=== PATIENT | male | born 1980 | race Caucasian/White ===

== ENCOUNTER 2017-12-27 18:51 | Inpatient (IN) | payer OTHER ==
[2017-12-27 21:16] VITALS: BMI 24.0
--- NOTE | 2017-12-27 22:06 | HP ---
CIWA Score - CIWA Score Nausea/Vomitin-Mild Nausea/No Vomiting Muscle Tremors: 4-Moderate,w/Arms Extend Anxiety: 4-Mod. Anxious/Guarded Agitation: 4-Moderately Restless Paroxysmal Sweats: No Perspiration Orientation: 0-Oriented Tacttile Disturbances: 0-None Auditory Disturbances: 0-None Visual Disturbances: 0-None Headache: 0-None Present CIWA-Ar Total Score: 13 Admission ROS BHS - HPI Chief Complaint: Alcohol withdrawal symptoms Allergies/Adverse Reactions: Allergies Allergy/AdvReac Type Severity Reaction Status Date / Time No Known Allergies Allergy Verified 12/27/17 22:02 History of Present Illness: 37 years old male with a 6 years old history of alcohol dependence is seeking admission to detox. Patient has never been to a detox and this his first admission to [facility]. He has medical history of depression and denies suicidal ideation at this time. Exam Limitations: No Limitations - Ebola screening Have you traveled outside of the country in the last 21 days: No Have you had contact with anyone from an Ebola affected area: No Have you been sick,other than usual withdrawal symptoms: No Do you have a fever: No - Review of Systems Constitutional: Chills, Loss of Appetite, Night Sweats EENT: reports: No Symptoms Reported Respiratory: reports: No Symptoms reported Cardiac: reports: No Symptoms Reported GI: reports: Nausea, Poor Appetite, Poor Fluid Intake, Abdominal cramping : reports: No Symptoms Reported Musculoskeletal: reports: Back Pain Integumentary: reports: Dryness Neuro: reports: Headache, Tremors Endocrine: reports: No Symptoms Reported Hematology: reports: No Symptoms Reported Psychiatric: reports: Orientated x3, Agitated, Anxious, Depressed Other Systems: Reviewed and Negative Patient History - Patient Medical History Hx Anemia: No Hx Asthma: No Hx Chronic Obstructive Pulmonary Disease (COPD): No Hx Cancer: No Hx Cardiac Disorders: No Hx Congestive Heart Failure: No Hx Hypertension: No Hx Hypercholesterolemia: No HX Cerebrovascular Accident: No Hx Seizures: No Hx Diabetes: No Hx Gastrointestinal Disorders: No Hx Liver Disease: No Hx Genitourinary Disorders: No Hx Sexually Transmitted Disorders: No Hx Renal Disease (ESRD): No Hx Thyroid Disease: No Hx Human Immunodeficiency Virus (HIV): No (Negative 2013) Hx Hepatitis C: No Hx Depression: Yes (Not on medication) Hx Suicide Attempt: No (Denies suicidal ideation and suicide attempt at this time) Hx Bipolar Disorder: No Hx Schizophrenia: No - Patient Surgical History Past Surgical History: No Hx Neurologic Surgery: No Hx Cataract Extraction: No Hx Cardiac Surgery: No Hx Lung Surgery: No Hx Abdominal Surgery: No Hx Appendectomy: No Hx Cholecystectomy: No Hx Genitourinary Surgery: No Hx Orthopedic Surgery: No (KNEE SURGERY 2002) Anesthesia Reaction: No - PPD History Previous Implant?: No Implanted On Prior [facility] Admission?: No PPD to be Administered?: Yes - Reproductive History Patient is a Female of Child Bearing Age (11 -55 yrs old): No (MALE) - Smoking Cessation Smoking history: Current every day smoker Have you smoked in the past 12 months: Yes Aproximately how many cigarettes per day: 20 Hx Chewing Tobacco Use: No Initiated information on smoking cessation: Yes 'Breaking Loose' booklet given: 12/27/17 - Substance & Tx. History Hx Alcohol Use: Yes Hx Substance Use: No Hx Substance Use Treatment: No - Substances Abused Alcohol Route: Oral Frequency: Daily Amount used: VODKA - I PINT, BEER - 4 x 16 oz. Age of first use: 22 Date of Last Use: 12/27/17 Family Disease History - Family Disease History Family History: Denies Admission Physical Exam BHS - Vital Signs Vital Signs: Vital Signs - 24 hr 12/27/17 21:09 Temperature 97.8 F Pulse Rate 85 Respiratory 18 Rate Blood Pressure 141/85 - Physical General Appearance: Yes: Moderate Distress, Thin, Tremorous, Irritable, Sweating , Anxious HEENTM: Yes: EOMI, Normal ENT Inspection, Normocephalic, Normal Voice, AMBER Respiratory: Yes: Lungs Clear, Normal Breath Sounds, No Respiratory Distress Neck: Yes: Supple Breast: Yes: Breast Exam Deferred Cardiology: Yes: Regular Rhythm, Regular Rate Abdominal: Yes: Normal Bowel Sounds, Soft Genitourinary: Yes: Within Normal Limits Back: Yes: Normal Inspection Musculoskeletal: Yes: Back pain, Muscle weakness Extremities: Yes: Tremors Neurological: Yes: Alert, Normal Mood/Affect Integumentary: Yes: Dry Lymphatic: Yes: Within Normal Limits - Diagnostic (1) Alcohol dependence with uncomplicated withdrawal Current Visit: Yes Status: Acute (2) Depression Current Visit: Yes Status: Acute Qualifiers: Depression Type: unspecified Qualified Code(s): F32.9 - Major depressive disorder, single episode, unspecified Cleared for Admission [facility] - Detox or Rehab [facility] Level of Care: Medically Managed Detox Regimen/Protocol: Librium [facility] Breath Alcohol Content Breath Alcohol Content: 0.033 Urine Drug Screen - Results Drug Screen Negative: Yes
[2017-12-27] MEDS ORDERED: MAG HYDROX/AL HYDROX/SIMETH 30 ML UNIT-DOSE CUP PO PRN (22:29)
[2017-12-27] MEDS ORDERED: IBUPROFEN 400 MG TABLET (FP) PO PRN (22:29)
[2017-12-27] MEDS ORDERED: MAGNESIUM HYDROX 2400MG/30ML ORAL SUSPENSION 30 ML CUP PO PRN (22:29)
[2017-12-27] MEDS ORDERED: NICOTINE POLACRILEX 2 MG GUM BC PRN (22:29)
[2017-12-27] MEDS ORDERED: guaiFENesin/D-METHORPHAN HB 10 ML UNIT-DOSE CUPS PO PRN (22:29)
[2017-12-27] MEDS ORDERED: chlordiazePOXIDE HCL 25 MG CAPSULE PO PRN (22:29)
[2017-12-27] MEDS ORDERED: ACETAMINOPHEN 325 MG TABLET (FP) PO PRN (22:29)
[2017-12-27] MEDS ORDERED: MAGNESIUM CITRATE 300 ML BOTTLE PO PRN (22:29)
[2017-12-27] MEDS ORDERED: LOPERAMIDE HCL 2 MG CAPSULE PO PRN (22:29)
[2017-12-27] MEDS ORDERED: MENTHOL/PHENOL 1 EACH UD MM PRN (22:29)
[2017-12-27] MEDS ORDERED: P-EPHED 60MG/TRIPROLIDI 2.5MG TABLET PO PRN (22:29)
--- NOTE | 2017-12-27 22:32 | HP ---
CIWA Score - CIWA Score Nausea/Vomitin-Mild Nausea/No Vomiting Muscle Tremors: 4-Moderate,w/Arms Extend Anxiety: 4-Mod. Anxious/Guarded Agitation: 4-Moderately Restless Paroxysmal Sweats: No Perspiration Orientation: 0-Oriented Tacttile Disturbances: 0-None Auditory Disturbances: 0-None Visual Disturbances: 0-None Headache: 0-None Present CIWA-Ar Total Score: 13 Admission ROS S - HPI Allergies/Adverse Reactions: Allergies Allergy/AdvReac Type Severity Reaction Status Date / Time No Known Allergies Allergy Verified 12/27/17 22:02 - Ebola screening Have you traveled outside of the country in the last 21 days: No Have you had contact with anyone from an Ebola affected area: No Have you been sick,other than usual withdrawal symptoms: No Do you have a fever: No Patient History - Patient Medical History Hx Anemia: No Hx Asthma: No Hx Chronic Obstructive Pulmonary Disease (COPD): No Hx Cancer: No Hx Cardiac Disorders: No Hx Congestive Heart Failure: No Hx Hypertension: No Hx Hypercholesterolemia: No HX Cerebrovascular Accident: No Hx Seizures: No Hx Diabetes: No Hx Gastrointestinal Disorders: No Hx Liver Disease: No Hx Genitourinary Disorders: No Hx Sexually Transmitted Disorders: No Hx Renal Disease (ESRD): No Hx Thyroid Disease: No Hx Human Immunodeficiency Virus (HIV): No (Negative 2013) Hx Hepatitis C: No Hx Depression: Yes (Not on medication) Hx Suicide Attempt: No (Denies b suicidal ideation and suicide attempt at this time) Hx Bipolar Disorder: No Hx Schizophrenia: No - Patient Surgical History Past Surgical History: No Hx Neurologic Surgery: No Hx Cataract Extraction: No Hx Cardiac Surgery: No Hx Lung Surgery: No Hx Abdominal Surgery: No Hx Appendectomy: No Hx Cholecystectomy: No Hx Genitourinary Surgery: No Hx Orthopedic Surgery: No (KNEE SURGERY 2002) Anesthesia Reaction: No - PPD History Previous Implant?: No Implanted On Prior R Admission?: No - Smoking Cessation Smoking history: Current every day smoker Have you smoked in the past 12 months: Yes Aproximately how many cigarettes per day: 20 Hx Chewing Tobacco Use: No Initiated information on smoking cessation: Yes - Substances Abused Alcohol Route: Oral Frequency: Daily Amount used: VODKA - I PINT, BEER - 4 x 16 oz. Age of first use: 22 Date of Last Use: 12/27/17 Admission Physical Exam S - Vital Signs Vital Signs: Vital Signs - 24 hr 12/27/17 21:09 Temperature 97.8 F Pulse Rate 85 Respiratory 18 Rate Blood Pressure 141/85 - Diagnostic (1) Alcohol dependence with uncomplicated withdrawal Current Visit: Yes Status: Acute (2) Depression Current Visit: Yes Status: Acute Qualifiers: Depression Type: unspecified Qualified Code(s): F32.9 - Major depressive disorder, single episode, unspecified BHS Breath Alcohol Content Breath Alcohol Content: 0.033 Urine Drug Screen - Results Drug Screen Negative: Yes
[2017-12-28] MEDS: chlordiazePOXIDE HCL 25 MG CAPSULE PO SCH ×5 (01:48→22:27)
--- NOTE | 2017-12-28 09:02 | EKG ---
Test Reason : Blood Pressure : / mmHG Vent. Rate : 065 BPM Atrial Rate : 065 BPM P-R Int : 116 ms QRS Dur : 114 ms QT Int : 396 ms P-R-T Axes : 031 071 045 degrees QTc Int : 411 ms NORMAL SINUS RHYTHM WITH SINUS ARRHYTHMIA MINIMAL VOLTAGE CRITERIA FOR LVH, MAY BE NORMAL VARIANT BORDERLINE ECG NO PREVIOUS ECGS AVAILABLE Confirmed by SANDI JEFFERY MD ([id number]) on 12/28/2017 9:01:15 AM Referred By: Confirmed By:SANDI JEFFERY MD
[2017-12-28 09:36] LABS: HEMATOCRIT 40.1 % (35.4-49); HEMOGLOBIN 13.4 GM/dL (11.7-16.9); MCH 29.9 pg (25.7-33.7); MCHC 33.5 g/dl (32.0-35.9); MEAN CELL VOLUME 89.4 fl (80-96); MEAN PLT VOLUME 9.2 fl (7.5-11.1); PLATELET COUNT 231 K/MM3 (134-434); RBC 4.48 M/mm3 (4.00-5.60); RDW 13.6 % (11.9-15.9); WHITE BLOOD COUNT 9.6 K/mm3 (4.0-10.0)
[2017-12-28] MEDS: PRENATAL VITAMINS W/ FOLIC ACID TABLET (FP) PO SCH (10:07)
[2017-12-28] MEDS: NICOTINE 14 MG/24 HOURS TOPICAL PATCH TD SCH (10:08)
[2017-12-28 10:12] LABS: CHLORIDE 108 mmol/L (98-107); POTASSIUM 4.1 mmol/L (3.5-5.1); SODIUM 146 mmol/L (136-145)
[2017-12-28 10:41] LABS: ALK PHOS 55 U/L (45-117); ANION GAP 12 (8-16); BILIRUBIN,TOTAL 0.4 mg/dL (0.2-1.0); BLOOD UREA NITROGEN 19 mg/dL (7-18); CO2 26 mmol/L (21-32); CREATININE 0.9 mg/dL (0.7-1.3); GLUCOSE,RANDOM 94 mg/dL (74-106); SGOT/AST 17 U/L (15-37); SGPT/ALT 24 U/L (12-78); TOT PROT 6.2 g/dl (6.4-8.2)
--- NOTE | 2017-12-28 11:17 | CONSULT ---
[facility] Psychiatric Consult - Data Date of interview: 12/28/17 Admission source: [facility] Identifying data: Patient is a 37 year old single male, father of one, domiciled and currently employed. This is patient's first admission to detox at [facility]. Pt. admitted to 3 detox for alcohol dependence. Substance Abuse History: - Smoking Cessation. Smoking history: Current every day smoker. Have you smoked in the past 12 months: Yes. Aproximately how many cigarettes per day: 20. Hx Chewing Tobacco Use: No. Initiated information on smoking cessation: Yes. 'Breaking Loose' booklet given: 12/27/17. - Substance & Tx. History. Hx Alcohol Use: Yes. Hx Substance Use: No. Hx Substance Use Treatment: No. - Substances Abused. Alcohol. Route: Oral. Frequency: Daily. Amount used: VODKA - I PINT, BEER - 4 x 16 oz. Age of first use: 22. Date of Last Use: 12/27/17 Medical History: Knee surgery 2012 Psychiatric History: Patient denies h/o psychiatric hospitalization, outpatient care, and suicide attempt. Physical/Sexual Abuse/Trauma History: Denies. Mental Status Exam - Mental Status Exam Alert and Oriented to: Time, Place, Person Cognitive Function: Good Patient Appearance: Well Groomed Mood: Hopeful, Euthymic Affect: Mood Congruent Patient Behavior: Appropriate, Cooperative Speech Pattern: Clear, Appropriate Voice Loudness: Normal Thought Process: Intact, Goal Oriented Thought Disorder: Not Present Hallucinations: Denies Suicidal Ideation: Denies Homicidal Ideation: Denies Insight/Judgement: Poor Sleep: Fair Appetite: Fair Muscle strength/Tone: Normal Gait/Station: Normal Psychiatric Findings - Problem List ([place] 1, 2,3) (1) Alcohol dependence with uncomplicated withdrawal Current Visit: Yes Status: Acute - Initial Treatment Plan Initial Treatment Plan: Psychoeducation provided. Detoxification in progress. Observation.
[2017-12-28 12:41] LABS: URINE APPEARANCE CLEAR; URINE BILIRUBIN NEGATIVE (<2.0 mg/dL); URINE COLOR LTYELLOW; URINE GLUCOSE (UA) NEGATIVE (NEGATIVE); URINE KETONE NEGATIVE (NEGATIVE); URINE LEUK ESTERASE NEGATIVE (NEGATIVE); URINE NITRITE NEGATIVE (NEGATIVE); URINE PROTEIN NEGATIVE (NEGATIVE); URINE UROBILINOGEN NEGATIVE mg/dL (0.2-1.0)
--- NOTE | 2017-12-28 15:20 | PN ---
[facility] CIWA - CIWA Score Nausea/Vomitin-No Nausea/No Vomiting Muscle Tremors: 4-Moderate,w/Arms Extend Anxiety: 4-Mod. Anxious/Guarded Agitation: 4-Moderately Restless Paroxysmal Sweats: 3 Orientation: 0-Oriented Tacttile Disturbances: 0-None Auditory Disturbances: 0-None Visual Disturbances: 0-None Headache: 0-None Present CIWA-Ar Total Score: 15 S Progress Note (SOAP) Subjective: Tremors, Anxious, Sweating. Objective: PATIENT A & O X 3, OBSERVED AMBULATING ON UNIT. NO ACUTE DISTRESS. 12/28/17 15:17 Vital Signs Temperature 97.4 F L 12/28/17 13:58 Pulse Rate 71 12/28/17 13:58 Respiratory Rate 18 12/28/17 13:58 Blood Pressure 124/76 12/28/17 13:58 O2 Sat by Pulse Oximetry (%) Laboratory Tests 12/28/17 12/28/17 12/28/17 08:00 08:00 08:00 WBC 9.6 RBC 4.48 Hgb 13.4 Hct 40.1 MCV 89.4 MCH 29.9 MCHC 33.5 RDW 13.6 Plt Count 231 MPV 9.2 Sodium 146 H Potassium 4.1 Chloride 108 H Carbon Dioxide 26 Anion Gap 12 BUN 19 H Creatinine 0.9 Creat Clearance w eGFR > 60 Random Glucose 94 Calcium 9.0 Total Bilirubin 0.4 AST 17 ALT 24 Alkaline Phosphatase 55 Total Protein 6.2 L Albumin 4.0 Urine Color Urine Appearance Urine pH Ur Specific [place] Urine Protein Urine Glucose (UA) Urine Ketones Urine Blood Urine Nitrite Urine Bilirubin Urine Urobilinogen Ur Leukocyte Esterase RPR Titer Nonreactive 12/28/17 08:21 WBC RBC Hgb Hct MCV MCH MCHC RDW Plt Count MPV Sodium Potassium Chloride Carbon Dioxide Anion Gap BUN Creatinine Creat Clearance w eGFR Random Glucose Calcium Total Bilirubin AST ALT Alkaline Phosphatase Total Protein Albumin Urine Color Ltyellow Urine Appearance Clear Urine pH 6.0 Ur Specific [place] 1.019 Urine Protein Negative Urine Glucose (UA) Negative Urine Ketones Negative Urine Blood Negative Urine Nitrite Negative Urine Bilirubin Negative Urine Urobilinogen Negative Ur Leukocyte Esterase Negative RPR Titer LABS NOTED. Assessment: 12/28/17 15:18 WITHDRAWAL SYMPTOMS. Plan: CONTINUE DETOX. INCREASE DAILY PO FLUID INTAKE. PATIENT REPORTS THAT HE IS TOLERATING CURRENT DETOX SYMPTOMS RELATIVELY WELL ANDS THAT HE NEEDS TO RETURN TO WORK EARLY IN AM ON 12/31/2016. AT PATIENT'S REQUEST, CURRENT DETOX MEDICATION REGIMEN (LIBRIUM) MODIFIED SO THAT PATIENT MAY BE DISCHARGED ON 12/30/2017.
[2017-12-28] MEDS: THIAMINE HCL 100 MG TABLET (FP) PO SCH (22:26)
[2017-12-28] MEDS: MELATONIN 5 MG TABLETS PO PRN (22:26)
[2017-12-28] MEDS ORDERED: chlordiazePOXIDE HCL 25 MG CAPSULE PO SCH (23:00)
[2017-12-29] MEDS: chlordiazePOXIDE HCL 25 MG CAPSULE PO SCH (05:24)
[2017-12-29] MEDS: PRENATAL VITAMINS W/ FOLIC ACID TABLET (FP) PO SCH (10:10)
[2017-12-29] MEDS: chlordiazePOXIDE 5 MG CAPSULE PO SCH ×2 (10:11→17:35)
[2017-12-29] MEDS: NICOTINE 14 MG/24 HOURS TOPICAL PATCH TD SCH (10:12)
--- NOTE | 2017-12-29 12:56 | PN ---
S CIWA - CIWA Score Nausea/Vomitin-No Nausea/No Vomiting Muscle Tremors: 3 Anxiety: 3 Agitation: 3 Paroxysmal Sweats: 1-Minimal Palms Moist Orientation: 0-Oriented Tacttile Disturbances: 2-Mild Itch/Numbness/Burn Auditory Disturbances: 0-None Visual Disturbances: 0-None Headache: 0-None Present CIWA-Ar Total Score: 12 BHS Progress Note (SOAP) Subjective: Tremors, Anxious. Objective: PATIENT A & O X 3, OBSERVED AMBULATING ON UNIT. NO ACUTE DISTRESS. 12/29/17 12:55 Laboratory Tests 12/28/17 12/28/17 12/28/17 08:00 08:00 08:00 WBC 9.6 RBC 4.48 Hgb 13.4 Hct 40.1 MCV 89.4 MCH 29.9 MCHC 33.5 RDW 13.6 Plt Count 231 MPV 9.2 Sodium 146 H Potassium 4.1 Chloride 108 H Carbon Dioxide 26 Anion Gap 12 BUN 19 H Creatinine 0.9 Creat Clearance w eGFR > 60 Random Glucose 94 Calcium 9.0 Total Bilirubin 0.4 AST 17 ALT 24 Alkaline Phosphatase 55 Total Protein 6.2 L Albumin 4.0 Urine Color Urine Appearance Urine pH Ur Specific [place] Urine Protein Urine Glucose (UA) Urine Ketones Urine Blood Urine Nitrite Urine Bilirubin Urine Urobilinogen Ur Leukocyte Esterase RPR Titer Nonreactive 12/28/17 08:21 WBC RBC Hgb Hct MCV MCH MCHC RDW Plt Count MPV Sodium Potassium Chloride Carbon Dioxide Anion Gap BUN Creatinine Creat Clearance w eGFR Random Glucose Calcium Total Bilirubin AST ALT Alkaline Phosphatase Total Protein Albumin Urine Color Ltyellow Urine Appearance Clear Urine pH 6.0 Ur Specific [place] 1.019 Urine Protein Negative Urine Glucose (UA) Negative Urine Ketones Negative Urine Blood Negative Urine Nitrite Negative Urine Bilirubin Negative Urine Urobilinogen Negative Ur Leukocyte Esterase Negative RPR Titer LABS NOTED. Assessment: 12/29/17 12:55 WITHDRAWAL SYMPTOMS. Plan: CONTINUE DETOX. PATIENT SCHEDULED FOR D/C TOMORROW.
[2017-12-29] MEDS: chlordiazePOXIDE HCL 10 MG CAPSULE PO SCH (22:11)
[2017-12-29] MEDS: MELATONIN 5 MG TABLETS PO PRN (22:11)
[2017-12-29] MEDS: THIAMINE HCL 100 MG TABLET (FP) PO SCH (22:11)
[2017-12-29] MEDS ORDERED: chlordiazePOXIDE 5 MG CAPSULE PO SCH (23:00)
[2017-12-30] MEDS: chlordiazePOXIDE HCL 10 MG CAPSULE PO SCH (05:21)
[2017-12-30 09:07] VITALS: BP 123/79; PULSE 78; TEMP 97
--- NOTE | 2017-12-30 14:33 | PN ---
BHS Progress Note (SOAP) Subjective: Patient denies current Detox symptoms and reports that he feels well overall. Objective: PATIENT A & O X 3, OBSERVED AMBULATING ON UNIT. NO ACUTE DISTRESS. 12/30/17 14:32 Vital Signs Temperature 97 F L 12/30/17 09:06 Pulse Rate 78 12/30/17 09:06 Respiratory Rate 20 12/30/17 09:06 Blood Pressure 123/79 12/30/17 09:06 O2 Sat by Pulse Oximetry (%) Laboratory Tests 12/28/17 12/28/17 12/28/17 08:00 08:00 08:00 WBC 9.6 RBC 4.48 Hgb 13.4 Hct 40.1 MCV 89.4 MCH 29.9 MCHC 33.5 RDW 13.6 Plt Count 231 MPV 9.2 Sodium 146 H Potassium 4.1 Chloride 108 H Carbon Dioxide 26 Anion Gap 12 BUN 19 H Creatinine 0.9 Creat Clearance w eGFR > 60 Random Glucose 94 Calcium 9.0 Total Bilirubin 0.4 AST 17 ALT 24 Alkaline Phosphatase 55 Total Protein 6.2 L Albumin 4.0 Urine Color Urine Appearance Urine pH Ur Specific [place] Urine Protein Urine Glucose (UA) Urine Ketones Urine Blood Urine Nitrite Urine Bilirubin Urine Urobilinogen Ur Leukocyte Esterase RPR Titer Nonreactive 12/28/17 08:21 WBC RBC Hgb Hct MCV MCH MCHC RDW Plt Count MPV Sodium Potassium Chloride Carbon Dioxide Anion Gap BUN Creatinine Creat Clearance w eGFR Random Glucose Calcium Total Bilirubin AST ALT Alkaline Phosphatase Total Protein Albumin Urine Color Ltyellow Urine Appearance Clear Urine pH 6.0 Ur Specific [place] 1.019 Urine Protein Negative Urine Glucose (UA) Negative Urine Ketones Negative Urine Blood Negative Urine Nitrite Negative Urine Bilirubin Negative Urine Urobilinogen Negative Ur Leukocyte Esterase Negative RPR Titer LABS NOTED. Assessment: 12/30/17 14:32 COMPLETION OF DETOX REGIMEN. Plan: PATIENT SCHEDULED FOR DISCHARGE FROM DETOX UNIT TODAY.
--- NOTE | 2017-12-30 14:37 | DS ---
[facility] Detox Discharge Summary Admission Date: 12/27/17 Discharge Date: 12/30/17 - History Present History: Alcohol Dependence Additional Comments: PATIENT RETURNING HOME AND TO WORK. PATIENT REPORTS THAT HE WILL ATTEND LOCAL OUTPATIENT AA MEETINGS FOR AFTERCARE. PATIENT WAS DISCHARGED FORM DETOX UNIT IN STABLE MEDICAL CONDITION. Pertinent Past History: Depression. - Physical Exam Results Vital Signs: Vital Signs Temperature 97 F L 12/30/17 09:06 Pulse Rate 78 12/30/17 09:06 Respiratory Rate 20 12/30/17 09:06 Blood Pressure 123/79 12/30/17 09:06 O2 Sat by Pulse Oximetry (%) Pertinent Admission Physical Exam Findings: WITHDRAWAL SYMPTOMS. Laboratory Tests 12/28/17 12/28/17 12/28/17 08:00 08:00 08:00 WBC 9.6 RBC 4.48 Hgb 13.4 Hct 40.1 MCV 89.4 MCH 29.9 MCHC 33.5 RDW 13.6 Plt Count 231 MPV 9.2 Sodium 146 H Potassium 4.1 Chloride 108 H Carbon Dioxide 26 Anion Gap 12 BUN 19 H Creatinine 0.9 Creat Clearance w eGFR > 60 Random Glucose 94 Calcium 9.0 Total Bilirubin 0.4 AST 17 ALT 24 Alkaline Phosphatase 55 Total Protein 6.2 L Albumin 4.0 Urine Color Urine Appearance Urine pH Ur Specific [place] Urine Protein Urine Glucose (UA) Urine Ketones Urine Blood Urine Nitrite Urine Bilirubin Urine Urobilinogen Ur Leukocyte Esterase RPR Titer Nonreactive 12/28/17 08:21 WBC RBC Hgb Hct MCV MCH MCHC RDW Plt Count MPV Sodium Potassium Chloride Carbon Dioxide Anion Gap BUN Creatinine Creat Clearance w eGFR Random Glucose Calcium Total Bilirubin AST ALT Alkaline Phosphatase Total Protein Albumin Urine Color Ltyellow Urine Appearance Clear Urine pH 6.0 Ur Specific [place] 1.019 Urine Protein Negative Urine Glucose (UA) Negative Urine Ketones Negative Urine Blood Negative Urine Nitrite Negative Urine Bilirubin Negative Urine Urobilinogen Negative Ur Leukocyte Esterase Negative RPR Titer LABS NOTED. - Treatment Hospital Course: Detox Protocol Followed, Detoxed Safely, Responded well, Discharged Condition Good Patient has Accepted a Rehab Referral to: PT GOING HOME, REPORTS THAT HE WILL ATTEND LOCAL OUTPATIENT AA MEETINGS. - Medication Discharge Medications: Ambulatory Orders NK [No Known Home Medication] 12/27/17 - Diagnosis (1) Alcohol dependence with uncomplicated withdrawal Status: Acute (2) Depression Status: Acute Qualifiers: Depression Type: unspecified Qualified Code(s): F32.9 - Major depressive disorder, single episode, unspecified - AMA Did Patient Leave Against Medical Advice: No
[2017-12-30] MEDS ORDERED: chlordiazePOXIDE HCL 10 MG CAPSULE PO SCH (23:00)
== END 2017-12-30 09:00 | disposition home or self-care (01) | DRG 775 ==
LOC: YASAS 18:51 → Y3N 23:31
PROVIDERS: ADMIT Surgery; ATTEND Surgery
PROC: HZ2ZZZZ Detoxification Services for Substance Abuse Treatment (ICD-10-PCS; principal; 2017-12-27)
DX: F10.230 Alcohol dependence with withdrawal, uncomplicated (principal); F32.9 Major depressive disorder, single episode, unspecified
CPT/HCPCS: 36415; 80053; 81003; 85027; 86593; 93005; 93010

== ENCOUNTER 2018-07-17 13:18 | Inpatient (IN) | payer OTHER ==
[2018-07-17 16:14] VITALS: BMI 23.6
--- NOTE | 2018-07-17 18:08 | HP ---
CIWA Score Nausea/Vomitin Muscle Tremors: 3 Anxiety: 2 Agitation: 2 Paroxysmal Sweats: 2 Orientation: 0-Oriented Tacttile Disturbances: 0-None Auditory Disturbances: 0-None Visual Disturbances: 0-None Headache: 2-Mild CIWA-Ar Total Score: 13 - Admission Criteria [facility] Guidelines: Admission for Medically Managed Detox: Requires at least one of the followin. CIWA greater than 12 2. Seizures within the past 24 hours 3. Delirium tremens within the past 24 hours 4. Hallucinations within the past 24 hours 5. Acute intervention needed for co occurring medical disorder 6. Acute intervention needed for co occurring psychiatric disorder 7. Severe withdrawal that cannot be handled at a lower level of care (continued vomiting, continued diarrhea, abnormal vital signs) requiring intravenous medication and/or fluids 8. Patient presents the following: CIWA greater than 12 Admission Criteria Met: Admission criteria met Admission ROS [facility] Chief Complaint: alcohol and cocaine detox 38 yo with no medical problems and on no meds, here for alcohol detox. alcohol: 6 18oz bottles of beer, no h/o seizures or DT's Cocaine- 3 grams over the weekend, occ user DUR- no meds Utox- only cocaine, MARIA ISABEL- neg Allergies/Adverse Reactions: Allergies Allergy/AdvReac Type Severity Reaction Status Date / Time No Known Allergies Allergy Verified 12/27/17 22:02 - Ebola screening Have you traveled outside of the country in the last 21 days: No (N) Have you had contact with anyone from an Ebola affected area: No Have you been sick,other than usual withdrawal symptoms: No Do you have a fever: No Patient History - Patient Medical History Hx Anemia: No Hx Asthma: No Hx Chronic Obstructive Pulmonary Disease (COPD): No Hx Cancer: No Hx Cardiac Disorders: No Hx Congestive Heart Failure: No Hx Hypertension: No Hx Hypercholesterolemia: No HX Cerebrovascular Accident: No Hx Seizures: No Hx Diabetes: No Hx Gastrointestinal Disorders: No Hx Liver Disease: No Hx Genitourinary Disorders: No Hx Sexually Transmitted Disorders: No Hx Renal Disease (ESRD): No Hx Thyroid Disease: No Hx Human Immunodeficiency Virus (HIV): No (Negative 2013) Hx Hepatitis C: No Hx Depression: Yes (Not on medication) Hx Suicide Attempt: No (Denies suicidal ideation and suicide attempt at this time) Hx Bipolar Disorder: No Hx Schizophrenia: No - Patient Surgical History Past Surgical History: No Hx Neurologic Surgery: No Hx Cataract Extraction: No Hx Cardiac Surgery: No Hx Lung Surgery: No Hx Abdominal Surgery: No Hx Appendectomy: No Hx Cholecystectomy: No Hx Genitourinary Surgery: No Hx Orthopedic Surgery: No (KNEE SURGERY 2002) Anesthesia Reaction: No - PPD History Previous Implant?: Yes Date: 12/31/17 - Smoking Cessation Smoking history: Current every day smoker Have you smoked in the past 12 months: Yes Aproximately how many cigarettes per day: 20 Hx Chewing Tobacco Use: No Initiated information on smoking cessation: Yes 'Breaking Loose' booklet given: 07/17/18 - Substance & Tx. History Hx Alcohol Use: Yes Hx Substance Use: Yes Substance Use Type: Cocaine Hx Substance Use Treatment: Yes (last detox in 12/2017 here) Family Disease History - Family Disease History Family History: Denies (pt denies) Admission Physical Exam [facility] - Vital Signs Vital Signs: Vital Signs - 24 hr 07/17/18 16:11 Temperature 97.6 F Pulse Rate 68 Respiratory 20 Rate Blood Pressure 129/76 - Physical General Appearance: Yes: Within Normal Limits HEENTM: Yes: Within Normal Limits Respiratory: Yes: Within Normal Limits Neck: Yes: Within Normal Limits Breast: Yes: Breast Exam Deferred Cardiology: Yes: Within Normal Limits Abdominal: Yes: Within Normal Limits Back: Yes: Within Normal Limits Musculoskeletal: Yes: Within Normal Limits Extremities: Yes: Within Normal Limits Neurological: Yes: Within Normal Limits Integumentary: Yes: Within Normal Limits Lymphatic: Yes: Within Normal Limits - Diagnostic (1) Cocaine use disorder Current Visit: Yes Status: Acute (2) Alcohol dependence with uncomplicated withdrawal Current Visit: No Status: Acute Cleared for Admission [facility] - Detox or Rehab [facility] Level of Care: Medically Managed [facility] Breath Alcohol Content Breath Alcohol Content: 0 Urine Drug Screen - Results Drug Screen Negative: No Urine Drug Screen Results: GABINO-Cocaine
[2018-07-17] MEDS ORDERED: chlordiazePOXIDE HCL 25 MG CAPSULE PO PRN ×2 (18:09→19:36)
[2018-07-17] MEDS ORDERED: MAGNESIUM CITRATE 300 ML BOTTLE PO PRN (18:10)
[2018-07-17] MEDS ORDERED: P-EPHED 60MG/TRIPROLIDI 2.5MG TABLET PO PRN (18:10)
[2018-07-17] MEDS ORDERED: IBUPROFEN 400 MG TABLET (FP) PO PRN (18:10)
[2018-07-17] MEDS ORDERED: LOPERAMIDE HCL 2 MG CAPSULE PO PRN (18:10)
[2018-07-17] MEDS ORDERED: ACETAMINOPHEN 325 MG TABLET (FP) PO PRN (18:10)
[2018-07-17] MEDS ORDERED: MAGNESIUM HYDROX 2400MG/30ML ORAL SUSPENSION 30 ML CUP PO PRN (18:10)
[2018-07-17] MEDS ORDERED: guaiFENesin/D-METHORPHAN HB 10 ML UNIT-DOSE CUPS PO PRN (18:10)
[2018-07-17] MEDS ORDERED: MENTHOL/PHENOL 1 EACH UD MM PRN (18:10)
[2018-07-17] MEDS ORDERED: MAG HYDROX/AL HYDROX/SIMETH 30 ML UNIT-DOSE CUP PO PRN (18:10)
[2018-07-17] MEDS: THIAMINE HCL 100 MG TABLET (FP) PO SCH (22:09)
[2018-07-17] MEDS: chlordiazePOXIDE HCL 25 MG CAPSULE PO SCH (22:09)
[2018-07-17] MEDS: MELATONIN 5 MG TABLETS PO PRN (22:09)
[2018-07-17 23:09] LABS: URINE APPEARANCE CLEAR; URINE BILIRUBIN NEGATIVE (<2.0 mg/dL); URINE COLOR YELLOW; URINE GLUCOSE (UA) NEGATIVE (NEGATIVE); URINE KETONE NEGATIVE (NEGATIVE); URINE LEUK ESTERASE NEGATIVE (NEGATIVE); URINE NITRITE NEGATIVE (NEGATIVE); URINE PROTEIN NEGATIVE (NEGATIVE); URINE UROBILINOGEN NEGATIVE mg/dL (0.2-1.0)
[2018-07-18] MEDS: chlordiazePOXIDE HCL 25 MG CAPSULE PO SCH ×3 (05:37→18:05)
[2018-07-18] MEDS: PRENATAL VITAMINS W/ FOLIC ACID TABLET (FP) PO SCH (10:03)
[2018-07-18 10:50] LABS: HEMATOCRIT 39.2 % (35.4-49); HEMOGLOBIN 13.2 GM/dL (11.7-16.9); MCH 30.3 pg (25.7-33.7); MCHC 33.7 g/dl (32.0-35.9); MEAN CELL VOLUME 89.9 fl (80-96); MEAN PLT VOLUME 9.4 fl (7.5-11.1); PLATELET COUNT 224 K/MM3 (134-434); RBC 4.36 M/mm3 (4.00-5.60); WHITE BLOOD COUNT 6.7 K/mm3 (4.0-10.0)
[2018-07-18 10:51] LABS: ALBUMIN 3.5 g/dl (3.4-5.0); ALK PHOS 59 U/L (45-117); ANION GAP 8 MMOL/L (8-16); BILIRUBIN,TOTAL 0.1 mg/dL (0.2-1); BLOOD UREA NITROGEN 21 mg/dL (7-18); CALCIUM 8.5 mg/dL (8.5-10.1); CHLORIDE 109 mmol/L (98-107); CO2 28 mmol/L (21-32); CREATININE 0.9 mg/dL (0.55-1.3); GLUCOSE,RANDOM 98 mg/dL (74-106); POTASSIUM 4.6 mmol/L (3.5-5.1); SGOT/AST 12 U/L (15-37); SGPT/ALT 19 U/L (13-61); SODIUM 145 mmol/L (136-145); TOT PROT 5.8 g/dl (6.4-8.2)
--- NOTE | 2018-07-18 12:28 | PN ---
S CIWA - CIWA Score Nausea/Vomitin-Mild Nausea/No Vomiting Muscle Tremors: 3 Anxiety: 1-Mildly Anxious Agitation: 2 Paroxysmal Sweats: 1-Minimal Palms Moist Orientation: 1-Uncertain about Date Tacttile Disturbances: 0-None Auditory Disturbances: 0-None Visual Disturbances: 0-None Headache: 2-Mild CIWA-Ar Total Score: 11 S Progress Note (SOAP) Subjective: tremor sweating anxiety headaches Objective: 07/18/18 12:27 Vital Signs Temperature 96 F L 07/18/18 09:05 Pulse Rate 70 07/18/18 09:05 Respiratory Rate 20 07/18/18 09:05 Blood Pressure 120/70 07/18/18 09:05 O2 Sat by Pulse Oximetry (%) Laboratory Last Values WBC 6.7 K/mm3 (4.0-10.0) 07/18/18 07:00 RBC 4.36 M/mm3 (4.00-5.60) 07/18/18 07:00 Hgb 13.2 GM/dL (11.7-16.9) 07/18/18 07:00 Hct 39.2 % (35.4-49) 07/18/18 07:00 MCV 89.9 fl (80-96) 07/18/18 07:00 MCH 30.3 pg (25.7-33.7) 07/18/18 07:00 MCHC 33.7 g/dl (32.0-35.9) 07/18/18 07:00 RDW 13.0 % (11.9-15.9) 07/18/18 07:00 Plt Count 224 K/MM3 (134-434) 07/18/18 07:00 MPV 9.4 fl (7.5-11.1) 07/18/18 07:00 Sodium 145 mmol/L (136-145) 07/18/18 07:00 Potassium 4.6 mmol/L (3.5-5.1) 07/18/18 07:00 Chloride 109 mmol/L (98-107) H 07/18/18 07:00 Carbon Dioxide 28 mmol/L (21-32) 07/18/18 07:00 Anion Gap 8 MMOL/L (8-16) 07/18/18 07:00 BUN 21 mg/dL (7-18) H 07/18/18 07:00 Creatinine 0.9 mg/dL (0.55-1.3) 07/18/18 07:00 Creat Clearance w eGFR > 60 (>60) 07/18/18 07:00 Random Glucose 98 mg/dL (74-106) 07/18/18 07:00 Calcium 8.5 mg/dL (8.5-10.1) 07/18/18 07:00 Total Bilirubin 0.1 mg/dL (0.2-1) L 07/18/18 07:00 AST 12 U/L (15-37) L 07/18/18 07:00 ALT 19 U/L (13-61) 07/18/18 07:00 Alkaline Phosphatase 59 U/L (45-117) 07/18/18 07:00 Total Protein 5.8 g/dl (6.4-8.2) L 07/18/18 07:00 Albumin 3.5 g/dl (3.4-5.0) 07/18/18 07:00 Urine Color Yellow 07/17/18 22:30 Urine Appearance Clear 07/17/18 22:30 Urine pH 7.0 (5.0-8.0) 07/17/18 22:30 Ur Specific [place] 1.021 (1.010-1.035) 07/17/18 22:30 Urine Protein Negative (NEGATIVE) 07/17/18 22:30 Urine Glucose (UA) Negative (NEGATIVE) 07/17/18 22:30 Urine Ketones Negative (NEGATIVE) 07/17/18 22:30 Urine Blood Negative (NEGATIVE) 07/17/18 22:30 Urine Nitrite Negative (NEGATIVE) 07/17/18 22:30 Urine Bilirubin Negative (<2.0 mg/dL) 07/17/18 22:30 Urine Urobilinogen Negative mg/dL (0.2-1.0) 07/17/18 22:30 Ur Leukocyte Esterase Negative (NEGATIVE) 07/17/18 22:30 RPR Titer Nonreactive (NONREACTIVE) 07/18/18 07:00 lab noted Assessment: 07/18/18 12:28 withdrawal sx Plan: continue detox
[2018-07-18] MEDS: MELATONIN 5 MG TABLETS PO PRN (22:27)
[2018-07-18] MEDS: chlordiazePOXIDE 5 MG CAPSULE PO SCH (22:27)
[2018-07-18] MEDS: THIAMINE HCL 100 MG TABLET (FP) PO SCH (22:39)
[2018-07-18] MEDS ORDERED: chlordiazePOXIDE HCL 25 MG CAPSULE PO SCH (23:00)
[2018-07-19] MEDS: chlordiazePOXIDE 5 MG CAPSULE PO SCH ×4 (05:38→22:10)
[2018-07-19] MEDS: PRENATAL VITAMINS W/ FOLIC ACID TABLET (FP) PO SCH (10:03)
--- NOTE | 2018-07-19 15:17 | PN ---
S CIWA - CIWA Score Nausea/Vomitin-No Nausea/No Vomiting Muscle Tremors: 2 Anxiety: 1-Mildly Anxious Agitation: 1-Slight > Activity Paroxysmal Sweats: 1-Minimal Palms Moist Orientation: 1-Uncertain about Date Tacttile Disturbances: 0-None Auditory Disturbances: 0-None Visual Disturbances: 0-None Headache: 2-Mild CIWA-Ar Total Score: 8 B[facility] Progress Note (SOAP) Subjective: tremor sweating irritable agitative Objective: 07/19/18 15:16 Vital Signs Temperature 97.3 F L 07/19/18 13:17 Pulse Rate 67 07/19/18 13:17 Respiratory Rate 18 07/19/18 13:17 Blood Pressure 125/67 07/19/18 13:17 O2 Sat by Pulse Oximetry (%) Laboratory Last Values WBC 6.7 K/mm3 (4.0-10.0) 07/18/18 07:00 RBC 4.36 M/mm3 (4.00-5.60) 07/18/18 07:00 Hgb 13.2 GM/dL (11.7-16.9) 07/18/18 07:00 Hct 39.2 % (35.4-49) 07/18/18 07:00 MCV 89.9 fl (80-96) 07/18/18 07:00 MCH 30.3 pg (25.7-33.7) 07/18/18 07:00 MCHC 33.7 g/dl (32.0-35.9) 07/18/18 07:00 RDW 13.0 % (11.9-15.9) 07/18/18 07:00 Plt Count 224 K/MM3 (134-434) 07/18/18 07:00 MPV 9.4 fl (7.5-11.1) 07/18/18 07:00 Sodium 145 mmol/L (136-145) 07/18/18 07:00 Potassium 4.6 mmol/L (3.5-5.1) 07/18/18 07:00 Chloride 109 mmol/L (98-107) H 07/18/18 07:00 Carbon Dioxide 28 mmol/L (21-32) 07/18/18 07:00 Anion Gap 8 MMOL/L (8-16) 07/18/18 07:00 BUN 21 mg/dL (7-18) H 07/18/18 07:00 Creatinine 0.9 mg/dL (0.55-1.3) 07/18/18 07:00 Creat Clearance w eGFR > 60 (>60) 07/18/18 07:00 Random Glucose 98 mg/dL (74-106) 07/18/18 07:00 Calcium 8.5 mg/dL (8.5-10.1) 07/18/18 07:00 Total Bilirubin 0.1 mg/dL (0.2-1) L 07/18/18 07:00 AST 12 U/L (15-37) L 07/18/18 07:00 ALT 19 U/L (13-61) 07/18/18 07:00 Alkaline Phosphatase 59 U/L (45-117) 07/18/18 07:00 Total Protein 5.8 g/dl (6.4-8.2) L 07/18/18 07:00 Albumin 3.5 g/dl (3.4-5.0) 07/18/18 07:00 Urine Color Yellow 07/17/18 22:30 Urine Appearance Clear 07/17/18 22:30 Urine pH 7.0 (5.0-8.0) 07/17/18 22:30 Ur Specific [place] 1.021 (1.010-1.035) 07/17/18 22:30 Urine Protein Negative (NEGATIVE) 07/17/18 22:30 Urine Glucose (UA) Negative (NEGATIVE) 07/17/18 22:30 Urine Ketones Negative (NEGATIVE) 07/17/18 22:30 Urine Blood Negative (NEGATIVE) 07/17/18 22:30 Urine Nitrite Negative (NEGATIVE) 07/17/18 22:30 Urine Bilirubin Negative (<2.0 mg/dL) 07/17/18 22:30 Urine Urobilinogen Negative mg/dL (0.2-1.0) 07/17/18 22:30 Ur Leukocyte Esterase Negative (NEGATIVE) 07/17/18 22:30 RPR Titer Nonreactive (NONREACTIVE) 07/18/18 07:00 lab noted Assessment: 07/19/18 15:16 alcohol withdrawal sx Plan: continue detox
[2018-07-19] MEDS: THIAMINE HCL 100 MG TABLET (FP) PO SCH (22:10)
[2018-07-19] MEDS: MELATONIN 5 MG TABLETS PO PRN (22:11)
[2018-07-19] MEDS ORDERED: chlordiazePOXIDE 5 MG CAPSULE PO SCH (23:00)
[2018-07-20] MEDS: chlordiazePOXIDE 5 MG CAPSULE PO SCH (05:39)
[2018-07-20 09:21] VITALS: BP 115/62; PULSE 70; TEMP 96.9
--- NOTE | 2018-07-20 09:58 | DS ---
[facility] Detox Discharge Summary Admission Date: 07/17/18 Discharge Date: 07/20/18 - History Present History: Alcohol Dependence Additional Comments: 38 years old male admitted on 07/17/18 for alcohol withdrawal stabilization reported feeling better preferred chemical rehab process today [facility] aftercare - Physical Exam Results Vital Signs: Vital Signs Temperature 96.9 F L 07/20/18 09:20 Pulse Rate 70 07/20/18 09:20 Respiratory Rate 18 07/20/18 09:20 Blood Pressure 115/62 07/20/18 09:20 O2 Sat by Pulse Oximetry (%) Pertinent Admission Physical Exam Findings: alcohol withdrawal sx Laboratory Last Values WBC 6.7 K/mm3 (4.0-10.0) 07/18/18 07:00 RBC 4.36 M/mm3 (4.00-5.60) 07/18/18 07:00 Hgb 13.2 GM/dL (11.7-16.9) 07/18/18 07:00 Hct 39.2 % (35.4-49) 07/18/18 07:00 MCV 89.9 fl (80-96) 07/18/18 07:00 MCH 30.3 pg (25.7-33.7) 07/18/18 07:00 MCHC 33.7 g/dl (32.0-35.9) 07/18/18 07:00 RDW 13.0 % (11.9-15.9) 07/18/18 07:00 Plt Count 224 K/MM3 (134-434) 07/18/18 07:00 MPV 9.4 fl (7.5-11.1) 07/18/18 07:00 Sodium 145 mmol/L (136-145) 07/18/18 07:00 Potassium 4.6 mmol/L (3.5-5.1) 07/18/18 07:00 Chloride 109 mmol/L (98-107) H 07/18/18 07:00 Carbon Dioxide 28 mmol/L (21-32) 07/18/18 07:00 Anion Gap 8 MMOL/L (8-16) 07/18/18 07:00 BUN 21 mg/dL (7-18) H 07/18/18 07:00 Creatinine 0.9 mg/dL (0.55-1.3) 07/18/18 07:00 Creat Clearance w eGFR > 60 (>60) 07/18/18 07:00 Random Glucose 98 mg/dL (74-106) 07/18/18 07:00 Calcium 8.5 mg/dL (8.5-10.1) 07/18/18 07:00 Total Bilirubin 0.1 mg/dL (0.2-1) L 07/18/18 07:00 AST 12 U/L (15-37) L 07/18/18 07:00 ALT 19 U/L (13-61) 07/18/18 07:00 Alkaline Phosphatase 59 U/L (45-117) 07/18/18 07:00 Total Protein 5.8 g/dl (6.4-8.2) L 07/18/18 07:00 Albumin 3.5 g/dl (3.4-5.0) 07/18/18 07:00 Urine Color Yellow 07/17/18 22:30 Urine Appearance Clear 07/17/18 22:30 Urine pH 7.0 (5.0-8.0) 07/17/18 22:30 Ur Specific [place] 1.021 (1.010-1.035) 07/17/18 22:30 Urine Protein Negative (NEGATIVE) 07/17/18 22:30 Urine Glucose (UA) Negative (NEGATIVE) 07/17/18 22:30 Urine Ketones Negative (NEGATIVE) 07/17/18 22:30 Urine Blood Negative (NEGATIVE) 07/17/18 22:30 Urine Nitrite Negative (NEGATIVE) 07/17/18 22:30 Urine Bilirubin Negative (<2.0 mg/dL) 07/17/18 22:30 Urine Urobilinogen Negative mg/dL (0.2-1.0) 07/17/18 22:30 Ur Leukocyte Esterase Negative (NEGATIVE) 07/17/18 22:30 RPR Titer Nonreactive (NONREACTIVE) 07/18/18 07:00 lab noted - Treatment Hospital Course: Detox Protocol Followed, Detoxed Safely, Responded well, Discharged Condition Good, Rehab Referral Accepted Patient has Accepted a Rehab Referral to: [facility] - Medication Discharge Medications: Ambulatory Orders NK [No Known Home Medication] 12/27/17 - Diagnosis (1) Alcohol dependence with uncomplicated withdrawal Current Visit: Yes Status: Acute - AMA Did Patient Leave Against Medical Advice: No
[2018-07-20] MEDS ORDERED: chlordiazePOXIDE 5 MG CAPSULE PO SCH ×2 (23:00)
== END 2018-07-20 09:56 | disposition home or self-care (01) | DRG 774 ==
LOC: YASAS 13:18 → Y3N 18:55
PROVIDERS: ADMIT Neuromusculoskeletal Medicine & OMM; ATTEND Neuromusculoskeletal Medicine & OMM
PROC: HZ2ZZZZ Detoxification Services for Substance Abuse Treatment (ICD-10-PCS; principal; 2018-07-17)
DX: F10.230 Alcohol dependence with withdrawal, uncomplicated (principal); F14.10 Cocaine abuse, uncomplicated; F17.210 Nicotine dependence, cigarettes, uncomplicated
CPT/HCPCS: 36415; 80053; 81003; 85027; 86593